=== PATIENT | female | born 1975 | race Caucasian/White ===

== ENCOUNTER 2020-01-29 05:13 | Emergency (ER) | payer OTHER ==
[~2020-01-29] VITALS: Ht 160 cm; Wt 83.0 kg
[~2020-01-29 05:13] MED LIST: XANAX 0.5 MG0.5 M1 PO
[2020-01-29] MEDS ORDERED: BACTRIM DS TAB1 EACH PO (05:25)
[2020-01-29 06:10] LABS: ABSOLUTE BASOPHILS 0.1 thou/uL (0.0-0.2); ABSOLUTE EOSINOPHILS 0.1 thou/uL (0.0-0.7); ABSOLUTE LYMPHOCYTES 1.7 thou/uL (0.8-5.3); ABSOLUTE MONOCYTES 0.8 thou/uL (0.0-1.2); ABSOLUTE NEUTROPHILS 8.9 thou/uL (1.6-8.1); BASOPHILS 0.5 %; EOSINOPHILS 0.5 %; MCH 30.2 pg (26.0-34.0); MCHC 34.9 g/dL (28.0-37.0); MCV 86.5 fL (80.0-100.0); MONOCYTES 7.1 %; MPV 8.4 fl. (7.2-11.1); NUCLEATED RBCS 0 /100WBC; PLATELET COUNT* 195 thou/uL (150-400); POLYS 76.9 %; RBC 5.31 mil/uL (4.20-5.00); RDW-CV 12.9 % (10.5-14.5); WBC 11.6 thou/uL (4.0-11.0)
[2020-01-29 06:15] LABS: CALCIUM 8.9 mg/dL (8.5-10.1); CREATININE 0.9 mg/dL (0.6-1.3); POTASSIUM 3.6 mmol/L (3.5-5.1)
[2020-01-29] MEDS ORDERED: KEFLEX500 M1 PO (07:06)
[2020-01-29 08:16] VITALS: BP 113/64
== END 2020-01-29 08:18 | disposition home or self-care (01) ==
LOC: M.ERS 05:13
PROVIDERS: Emergency Medicine
DX: S90.111A Contusion of right great toe without damage to nail, initial encounter (principal); L03.031 Cellulitis of right toe; Z90.710 Acquired absence of both cervix and uterus; Z88.5 Allergy status to narcotic agent; Z88.6 Allergy status to analgesic agent; X58.XXXA Exposure to other specified factors, initial encounter; Y93.89 Activity, other specified; Y92.89 Other specified places as the place of occurrence of the external cause; Y99.8 Other external cause status

== ENCOUNTER → 2020-02-07 | Outpatient (CLI) | payer OTHER ==
[~2020-02-07] MED LIST changes: +BACTRIM DS TAB1 EACH PO; +KEFLEX500 M1 PO
== END ==
LOC: M.WC 09:40
PROVIDERS: ATTEND Family Medicine
DX: L03.031 Cellulitis of right toe (principal); S91.101A Unspecified open wound of right great toe without damage to nail, initial encounter; E66.9 Obesity, unspecified; G47.30 Sleep apnea, unspecified; F41.9 Anxiety disorder, unspecified; Z68.35 Body mass index [BMI] 35.0-35.9, adult; Z87.891 Personal history of nicotine dependence; Z90.710 Acquired absence of both cervix and uterus; Z90.49 Acquired absence of other specified parts of digestive tract; X58.XXXA Exposure to other specified factors, initial encounter; Y93.89 Activity, other specified; Y92.89 Other specified places as the place of occurrence of the external cause; Y99.8 Other external cause status

== ENCOUNTER → 2020-02-13 | Outpatient (CLI) | payer OTHER | LOC: M.WC 04:20 | PROVIDERS: ATTEND Family Medicine | DX: S91.101D Unspecified open wound of right great toe without damage to nail, subsequent encounter (principal); L03.031 Cellulitis of right toe; E66.9 Obesity, unspecified; G47.30 Sleep apnea, unspecified; H91.90 Unspecified hearing loss, unspecified ear; F41.9 Anxiety disorder, unspecified; Z68.35 Body mass index [BMI] 35.0-35.9, adult; Z87.891 Personal history of nicotine dependence ==

== ENCOUNTER 2021-03-11 14:18 | Inpatient (IN) | payer OTHER ==
[~2021-03-11] VITALS: Ht 160 cm; Wt 73.8 kg
[2021-03-11 14:25] VITALS: BP 101/63
[2021-03-11] MEDS ORDERED: CLONAZEPAM 0.50.5 M1 PO (14:27)
[2021-03-11] MEDS ORDERED: ROSUVASTATIN CA10 MG PO (14:28)
--- NOTE | 2021-03-11 15:08 | EKG ---
[place] [address] ELECTROCARDIOGRAM REPORT Name: HUDSON ESQUIVEL Room: [facility]#: [id number] Admission: 03/11/21 Attend Phys: Discharge: Date of : 71 Date of Service: 03/11/21 1502 Report #: [id number] THIS REPORT FOR: //name// [facility] ED Test Date: 2021-03-11 Test Time: 15:02:56 Pat Name: HUDSON ESQUIVEL Department: Room: Gender: Unit Technician: : 1975 Requested By: Natali Andrade Order Number: [id number] MD: Olivier Carter Measurements Intervals [place] Rate: 98 P: 37 MD: 116 QRS: 61 QRSD: 79 T: 31 QT: 321 QTc: 410 Interpretive Statements Sinus rhythm Borderline short MD interval Baseline wander in lead(s) V6 Compared to ECG 02/13/2019 06:33:55 No significant changes Electronically Signed On 03-11-2021 15:08:03 CDT by Olivier Carter [email or web address] <ELECTRONICALLY SIGNED> By: Olivier Carter MD, [facility] 03/11/21 1508 1502 1502 Olivier Carter MD, [facility] /EPI
[2021-03-11 15:57] LABS: HEMATOCRIT 43.9 % (37.0-47.0); MCH 29.2 pg (26.0-34.0); MCHC 34.2 g/dL (28.0-37.0); MCV 85.6 fL (80.0-100.0); MPV 8.2 fl. (7.2-11.1); NUCLEATED RBCS 0 /100WBC; PLATELET COUNT* 95 thou/uL (150-400); RBC 5.13 mil/uL (4.20-5.00); WBC 4.8 thou/uL (4.0-11.0)
[2021-03-11 16:05] LABS: CALCIUM 7.9 mg/dL (8.5-10.1); POTASSIUM 3.6 mmol/L (3.5-5.1)
[2021-03-11 16:10] LABS: ALBUMIN 3.3 g/dL (3.4-5.0); TOTAL BILIRUBIN 0.3 mg/dL (<0.1-1.0)
[2021-03-11 16:30] LABS: ABSOLUTE LYMPHOCYTES 0.4 thou/uL (0.8-5.3); ABSOLUTE MONOCYTES 0.1 thou/uL (0.0-1.2); ABSOLUTE NEUTROPHILS 4.3 thou/uL (1.6-8.1); PLATELET ESTIMATE ADEQUATE
[2021-03-11 21:00] VITALS: BP 101/61
[2021-03-11 23:45] VITALS: BP 101/61; BP 115/73
[2021-03-12 04:23] VITALS: BP 97/67
[2021-03-12 08:00] VITALS: BP 120/74
[2021-03-12 12:00] VITALS: BP 115/71
[2021-03-12 16:00] VITALS: BP 106/68
[2021-03-12 20:14] VITALS: BP 103/65
[2021-03-12 20:19] VITALS: BP 107/66
[2021-03-13 00:13] VITALS: BP 92/59
[2021-03-13 04:41] VITALS: BP 105/68
[2021-03-13 09:00] VITALS: BP 98/50
[2021-03-13 12:11] VITALS: BP 96/63
[2021-03-13 13:29] LABS: CALCIUM 8.4 mg/dL (8.5-10.1); CREATININE 0.9 mg/dL (0.6-1.3)
[2021-03-13 15:12] LABS: URINE BILIRUBIN NEGATIVE (Negative); URINE BLOOD NEGATIVE (Negative); URINE CLARITY CLEAR; URINE COLOR YELLOW; URINE GLUCOSE-RANDOM NEGATIVE (Negative); URINE KETONES 1+ (Negative); URINE LEUKOCYTES-REFLEX TRACE (Negative); URINE NITRITE-REFLEX NEGATIVE (Negative); URINE PROTEIN 1+ (Negative); URINE UROBILINOGEN 0.2 E.U./dl (0.2-1.0)
[2021-03-13 15:30] LABS: CASTS None Seen /LPF (None Seen); CRYSTALS None Seen /LPF (None Seen); SQUAMOUS 0-3 Few /LPF (0-3); URINE RBC 0-2 Rare /HPF (0-2); URINE WBC-REFLEX 0-5 Rare /HPF (0-5)
[2021-03-13 16:35] VITALS: BP 97/63
[2021-03-13 20:19] VITALS: BP 107/66
[2021-03-14 00:29] VITALS: BP 96/47
[2021-03-14 04:43] VITALS: BP 108/71
[2021-03-14 08:00] VITALS: BP 117/72
[2021-03-14 10:58] LABS: CALCIUM 8.6 mg/dL (8.5-10.1)
[2021-03-14 12:00] VITALS: BP 95/63
[2021-03-14 16:00] VITALS: BP 94/57
[2021-03-14 22:00] VITALS: BP 103/69
[2021-03-15] VITALS: BP 111/75
[2021-03-15 04:00] VITALS: BP 111/79
[2021-03-15 08:00] VITALS: BP 127/79
[2021-03-15 11:31] VITALS: BP 96/64
[2021-03-15 16:11] VITALS: BP 92/51
[2021-03-16 00:38] VITALS: BP 108/75
[2021-03-16 05:05] VITALS: BP 124/80
[2021-03-16 07:30] VITALS: BP 117/80
[2021-03-16 08:33] LABS: ABSOLUTE LYMPHOCYTES 0.6 thou/uL (0.8-5.3); ABSOLUTE MONOCYTES 1.1 thou/uL (0.0-1.2); ABSOLUTE NEUTROPHILS 13.6 thou/uL (1.6-8.1); BASOPHILS 0.1 %; HEMATOCRIT 44.4 % (37.0-47.0); HEMOGLOBIN 15.3 gm/dL (12.0-15.0); LYMPHOCYTES 3.9 %; MCH 29.2 pg (26.0-34.0); MCHC 34.5 g/dL (28.0-37.0); MCV 84.7 fL (80.0-100.0); MPV 7.9 fl. (7.2-11.1); NUCLEATED RBCS 0 /100WBC; PLATELET COUNT* 234 thou/uL (150-400); RBC 5.24 mil/uL (4.20-5.00); RDW-CV 12.8 % (10.5-14.5); WBC 15.2 thou/uL (4.0-11.0)
[2021-03-16 08:46] LABS: ALBUMIN 2.9 g/dL (3.4-5.0); CREATININE 0.8 mg/dL (0.6-1.3); MAGNESIUM 2.2 mg/dL (1.8-2.4); POTASSIUM 3.9 mmol/L (3.5-5.1); TOTAL BILIRUBIN 0.6 mg/dL (<0.1-1.0); TOTAL PROTEIN 6.2 g/dL (6.4-8.2)
[2021-03-16 12:00] VITALS: BP 130/74
[2021-03-16 16:51] VITALS: BP 137/68
[2021-03-17 00:32] VITALS: BP 128/65
[2021-03-17 04:19] VITALS: BP 118/67
[2021-03-17 04:41] LABS: HEMATOCRIT 44.6 % (37.0-47.0); MCH 28.8 pg (26.0-34.0); MCHC 33.6 g/dL (28.0-37.0); MCV 85.6 fL (80.0-100.0); MPV 7.6 fl. (7.2-11.1); NUCLEATED RBCS 0 /100WBC; PLATELET COUNT* 161 thou/uL (150-400); RDW-CV 12.7 % (10.5-14.5); WBC 19.1 thou/uL (4.0-11.0)
[2021-03-17 05:00] LABS: ALBUMIN 2.7 g/dL (3.4-5.0); CALCIUM 8.3 mg/dL (8.5-10.1); CREATININE 0.9 mg/dL (0.6-1.3); MAGNESIUM 2.4 mg/dL (1.8-2.4); POTASSIUM 3.9 mmol/L (3.5-5.1); TOTAL BILIRUBIN 0.7 mg/dL (<0.1-1.0); TOTAL PROTEIN 6.4 g/dL (6.4-8.2)
[2021-03-17 06:20] LABS: ABSOLUTE LYMPHOCYTES 1.1 thou/uL (0.8-5.3); ABSOLUTE MONOCYTES 0.2 thou/uL (0.0-1.2); ABSOLUTE NEUTROPHILS 17.8 thou/uL (1.6-8.1); ATYPICAL LYMPHS 3 %; PLATELET ESTIMATE ADEQUATE
[2021-03-17 08:00] VITALS: BP 113/77
[2021-03-17 12:00] VITALS: BP 113/70
[2021-03-17 12:45] LABS: BE 0.7 mmol/L (-2 to +3); PCO2 34.5 mmHg (35.0-45.0); PO2 117.7 mmHg (75.0-100.0); pH 7.458 (7.340-7.450)
[2021-03-17 17:43] VITALS: BP 119/71
[2021-03-18] VITALS: BP 104/73
[2021-03-18 04:00] VITALS: BP 134/55
[2021-03-18 04:55] LABS: HEMATOCRIT 44.4 % (37.0-47.0); HEMOGLOBIN 14.9 gm/dL (12.0-15.0); MCH 28.8 pg (26.0-34.0); MCHC 33.5 g/dL (28.0-37.0); MCV 86.2 fL (80.0-100.0); MPV 7.7 fl. (7.2-11.1); RBC 5.16 mil/uL (4.20-5.00); RDW-CV 12.6 % (10.5-14.5); WBC 19.5 thou/uL (4.0-11.0)
[2021-03-18 05:18] LABS: ALBUMIN 3.3 g/dL (3.4-5.0); CALCIUM 8.7 mg/dL (8.5-10.1); CREATININE 0.9 mg/dL (0.6-1.3); MAGNESIUM 2.4 mg/dL (1.8-2.4); POTASSIUM 4.1 mmol/L (3.5-5.1); TOTAL BILIRUBIN 0.8 mg/dL (<0.1-1.0); TOTAL PROTEIN 6.8 g/dL (6.4-8.2)
[2021-03-18 08:00] VITALS: BP 141/66
[2021-03-18 12:01] VITALS: BP 130/57
[2021-03-18 15:58] VITALS: BP 100/61
[2021-03-18 20:00] VITALS: BP 146/76
[2021-03-19 00:54] VITALS: BP 110/71
[2021-03-19 04:43] VITALS: BP 113/71
[2021-03-19 05:19] LABS: ABSOLUTE LYMPHOCYTES 0.3 thou/uL (0.8-5.3); ABSOLUTE MONOCYTES 0.4 thou/uL (0.0-1.2); ABSOLUTE NEUTROPHILS 17.1 thou/uL (1.6-8.1); BASOPHILS 0.1 %; HEMATOCRIT 47.6 % (37.0-47.0); HEMOGLOBIN 15.9 gm/dL (12.0-15.0); LYMPHOCYTES 1.9 %; MCH 28.5 pg (26.0-34.0); MCHC 33.4 g/dL (28.0-37.0); MCV 85.4 fL (80.0-100.0); MONOCYTES 2.5 %; NUCLEATED RBCS 0 /100WBC; PLATELET COUNT* 131 thou/uL (150-400); POLYS 95.5 %; RBC 5.58 mil/uL (4.20-5.00); RDW-CV 12.6 % (10.5-14.5); WBC 17.9 thou/uL (4.0-11.0)
[2021-03-19 05:49] LABS: ALBUMIN 3.2 g/dL (3.4-5.0); CALCIUM 8.8 mg/dL (8.5-10.1); CREATININE 0.9 mg/dL (0.6-1.3); MAGNESIUM 2.5 mg/dL (1.8-2.4); POTASSIUM 4.5 mmol/L (3.5-5.1); TOTAL BILIRUBIN 0.7 mg/dL (<0.1-1.0); TOTAL PROTEIN 7.2 g/dL (6.4-8.2)
[2021-03-19 08:00] VITALS: BP 95/65
[2021-03-19 12:30] VITALS: BP 136/72
[2021-03-19 17:53] VITALS: BP 128/77
[2021-03-19 20:00] VITALS: BP 151/73
[2021-03-20 00:27] VITALS: BP 107/68
[2021-03-20 04:28] VITALS: BP 91/53
[2021-03-20 08:00] VITALS: BP 108/63
[2021-03-20 12:00] VITALS: BP 116/81
[2021-03-20 16:00] VITALS: BP 119/80
[2021-03-20 20:00] VITALS: BP 145/583
[2021-03-21 00:29] VITALS: BP 98/61
[2021-03-21 04:00] VITALS: BP 96/56
[2021-03-21 06:00] LABS: HEMATOCRIT 48.2 % (37.0-47.0); HEMOGLOBIN 16.2 gm/dL (12.0-15.0); MCH 28.9 pg (26.0-34.0); MCHC 33.7 g/dL (28.0-37.0); MCV 85.7 fL (80.0-100.0); MPV 8.2 fl. (7.2-11.1); NUCLEATED RBCS 0 /100WBC; PLATELET COUNT* 110 thou/uL (150-400); RBC 5.62 mil/uL (4.20-5.00); RDW-CV 13.1 % (10.5-14.5)
[2021-03-21 06:19] LABS: CALCIUM 8.8 mg/dL (8.5-10.1); CREATININE 0.9 mg/dL (0.6-1.3); MAGNESIUM 2.4 mg/dL (1.8-2.4); POTASSIUM 4.7 mmol/L (3.5-5.1); TOTAL BILIRUBIN 0.9 mg/dL (<0.1-1.0); TOTAL PROTEIN 6.7 g/dL (6.4-8.2)
[2021-03-21 07:25] LABS: ABSOLUTE LYMPHOCYTES 0.7 thou/uL (0.8-5.3); ABSOLUTE NEUTROPHILS 21.3 thou/uL (1.6-8.1); PLATELET ESTIMATE ADEQUATE
[2021-03-21 08:00] VITALS: BP 90/57
[2021-03-21 12:19] VITALS: BP 140/76
[2021-03-21 16:00] VITALS: BP 139/73
[2021-03-21 17:26] LABS: CALCIUM 9.2 mg/dL (8.5-10.1); MAGNESIUM 2.5 mg/dL (1.8-2.4); POTASSIUM 4.5 mmol/L (3.5-5.1)
[2021-03-21 18:34] LABS: BE 1.8 mmol/L (-2 to +3); PCO2 33.6 mmHg (35.0-45.0); PO2 62.2 mmHg (75.0-100.0)
[2021-03-21 20:00] VITALS: BP 134/73
[2021-03-22] VITALS: BP 144/78
[2021-03-22 04:00] VITALS: BP 125/75
[2021-03-22 08:00] VITALS: BP 123/78
[2021-03-22 12:00] VITALS: BP 135/85
[2021-03-22 18:35] VITALS: BP 111/81
[2021-03-22 20:00] VITALS: BP 129/85
[2021-03-23 00:51] VITALS: BP 107/74
[2021-03-23 04:32] VITALS: BP 111/81
[2021-03-23 04:50] LABS: ABSOLUTE BASOPHILS 0.1 thou/uL (0.0-0.2); ABSOLUTE LYMPHOCYTES 0.6 thou/uL (0.8-5.3); ABSOLUTE MONOCYTES 0.8 thou/uL (0.0-1.2); BASOPHILS 0.3 %; EOSINOPHILS 0.1 %; HEMATOCRIT 50.1 % (37.0-47.0); HEMOGLOBIN 17.1 gm/dL (12.0-15.0); LYMPHOCYTES 2.4 %; MCH 29.2 pg (26.0-34.0); MCHC 34.1 g/dL (28.0-37.0); MCV 85.6 fL (80.0-100.0); MPV 8.8 fl. (7.2-11.1); NUCLEATED RBCS 0 /100WBC; PLATELET COUNT* 107 thou/uL (150-400); POLYS 94.2 %; RBC 5.86 mil/uL (4.20-5.00); RDW-CV 12.7 % (10.5-14.5); WBC 25.4 thou/uL (4.0-11.0)
[2021-03-23 05:01] LABS: ALBUMIN 3.6 g/dL (3.4-5.0); CALCIUM 9.2 mg/dL (8.5-10.1); MAGNESIUM 2.4 mg/dL (1.8-2.4); POTASSIUM 4.6 mmol/L (3.5-5.1); TOTAL BILIRUBIN 1.1 mg/dL (<0.1-1.0); TOTAL PROTEIN 6.9 g/dL (6.4-8.2)
[2021-03-23 08:00] VITALS: BP 106/83
[2021-03-23 12:00] VITALS: BP 137/85
[2021-03-23 16:00] VITALS: BP 139/74
[2021-03-24] VITALS: BP 121/89
[2021-03-24 03:33] VITALS: BP 112/79
[2021-03-24 06:14] LABS: HEMOGLOBIN 17.2 gm/dL (12.0-15.0); MCH 28.8 pg (26.0-34.0); MCHC 33.8 g/dL (28.0-37.0); MCV 85.2 fL (80.0-100.0); MPV 9.2 fl. (7.2-11.1); NUCLEATED RBCS 0 /100WBC; PLATELET COUNT* 97 thou/uL (150-400); RBC 5.99 mil/uL (4.20-5.00); RDW-CV 12.7 % (10.5-14.5)
[2021-03-24 06:24] LABS: ALBUMIN 3.3 g/dL (3.4-5.0); CALCIUM 8.9 mg/dL (8.5-10.1); MAGNESIUM 2.4 mg/dL (1.8-2.4); POTASSIUM 4.3 mmol/L (3.5-5.1); TOTAL BILIRUBIN 1.2 mg/dL (<0.1-1.0); TOTAL PROTEIN 6.7 g/dL (6.4-8.2)
[2021-03-24 07:44] LABS: ABSOLUTE LYMPHOCYTES 0.5 thou/uL (0.8-5.3); ABSOLUTE NEUTROPHILS 22.5 thou/uL (1.6-8.1); PLATELET ESTIMATE DECREASED
[2021-03-24 08:30] VITALS: BP 115/80
[2021-03-24 12:28] VITALS: BP 128/88
[2021-03-24 17:01] VITALS: BP 113/81
[2021-03-24 20:30] VITALS: BP 120/83
[2021-03-25] VITALS: BP 119/70
[2021-03-25 04:00] VITALS: BP 95/62
[2021-03-25 08:00] VITALS: BP 97/67
[2021-03-25 12:13] VITALS: BP 121/82
[2021-03-25 16:00] VITALS: BP 119/82
[2021-03-25 20:30] VITALS: BP 107/77
[2021-03-26 00:07] VITALS: BP 116/85
[2021-03-26 04:00] VITALS: BP 97/64
[2021-03-26 09:06] VITALS: BP 98/67
[2021-03-26 09:30] LABS: ABSOLUTE MONOCYTES 1.3 thou/uL (0.0-1.2); ABSOLUTE NEUTROPHILS 24.1 thou/uL (1.6-8.1); BASOPHILS 0.1 %; EOSINOPHILS 0.1 %; HEMATOCRIT 47.7 % (37.0-47.0); HEMOGLOBIN 16.3 gm/dL (12.0-15.0); LYMPHOCYTES 3.9 %; MCH 29.2 pg (26.0-34.0); MCHC 34.2 g/dL (28.0-37.0); MCV 85.2 fL (80.0-100.0); MPV 9.6 fl. (7.2-11.1); NUCLEATED RBCS 0 /100WBC; PLATELET COUNT* 133 thou/uL (150-400); POLYS 90.9 %; RBC 5.59 mil/uL (4.20-5.00); RDW-CV 12.9 % (10.5-14.5); WBC 26.5 thou/uL (4.0-11.0)
[2021-03-26 09:40] LABS: ALBUMIN 3.1 g/dL (3.4-5.0); CALCIUM 8.7 mg/dL (8.5-10.1); MAGNESIUM 2.5 mg/dL (1.8-2.4); POTASSIUM 4.6 mmol/L (3.5-5.1); TOTAL BILIRUBIN 1.3 mg/dL (<0.1-1.0); TOTAL PROTEIN 6.1 g/dL (6.4-8.2)
[2021-03-26 12:20] VITALS: BP 103/73
[2021-03-26 16:51] VITALS: BP 124/79
[2021-03-26 20:00] VITALS: BP 105/72
[2021-03-27 00:33] VITALS: BP 94/55
[2021-03-27 04:30] VITALS: BP 90/64
[2021-03-27 05:05] LABS: CALCIUM 8.4 mg/dL (8.5-10.1); CREATININE 0.8 mg/dL (0.6-1.3); POTASSIUM 4.7 mmol/L (3.5-5.1)
[2021-03-27 08:00] VITALS: BP 99/65
[2021-03-27 19:44] VITALS: BP 111/78
[2021-03-27 20:00] VITALS: BP 158/90
[2021-03-27 23:35] VITALS: BP 115/75
[2021-03-28 04:00] VITALS: BP 106/72
[2021-03-28 06:12] LABS: CALCIUM 8.8 mg/dL (8.5-10.1); CREATININE 0.7 mg/dL (0.6-1.3)
[2021-03-28 08:00] VITALS: BP 102/69
[2021-03-28 14:09] VITALS: BP 95/58
[2021-03-28 19:37] VITALS: BP 106/74
[2021-03-28 21:00] VITALS: BP 126/73
[2021-03-28 23:45] VITALS: BP 100/64
[2021-03-29 04:00] VITALS: BP 91/59
[2021-03-29 04:24] LABS: HEMATOCRIT 41.3 % (37.0-47.0); MCH 28.5 pg (26.0-34.0); MCHC 33.3 g/dL (28.0-37.0); MCV 85.7 fL (80.0-100.0); MPV 8.9 fl. (7.2-11.1); RBC 4.82 mil/uL (4.20-5.00); WBC 19.8 thou/uL (4.0-11.0)
[2021-03-29 04:53] LABS: CALCIUM 8.3 mg/dL (8.5-10.1); CREATININE 0.8 mg/dL (0.6-1.3); POTASSIUM 4.1 mmol/L (3.5-5.1)
[2021-03-29 05:01] LABS: HEMOGLOBIN 13.7 gm/dL (12.0-15.0)
[2021-03-29 08:00] VITALS: BP 93/69
[2021-03-29 12:00] VITALS: BP 109/74
[2021-03-29 16:00] VITALS: BP 109/72
[2021-03-29 20:00] VITALS: BP 105/61
[2021-03-30 00:04] VITALS: BP 117/68
[2021-03-30 04:48] VITALS: BP 102/65
[2021-03-30 08:00] VITALS: BP 105/68
[2021-03-30 19:13] VITALS: BP 103/61
[2021-03-30 20:00] VITALS: BP 108/64
[2021-03-30 23:58] VITALS: BP 117/74
[2021-03-31 04:36] VITALS: BP 102/64
[2021-03-31 06:54] LABS: HEMOGLOBIN 13.5 gm/dL (12.0-15.0); MCH 29.1 pg (26.0-34.0); MCHC 33.8 g/dL (28.0-37.0); MCV 86.2 fL (80.0-100.0); MPV 8.3 fl. (7.2-11.1); NUCLEATED RBCS 0 /100WBC; PLATELET COUNT* 129 thou/uL (150-400); RBC 4.64 mil/uL (4.20-5.00); RDW-CV 12.9 % (10.5-14.5); WBC 23.6 thou/uL (4.0-11.0)
[2021-03-31 07:06] LABS: ALBUMIN 2.8 g/dL (3.4-5.0); CALCIUM 8.4 mg/dL (8.5-10.1); CREATININE 0.7 mg/dL (0.6-1.3); MAGNESIUM 2.5 mg/dL (1.8-2.4); PHOSPHORUS* 4.8 mg/dL (2.5-4.9); POTASSIUM 4.3 mmol/L (3.5-5.1); TOTAL BILIRUBIN 0.6 mg/dL (<0.1-1.0); TOTAL PROTEIN 5.3 g/dL (6.4-8.2)
[2021-03-31 07:46] LABS: ABSOLUTE EOSINOPHILS 0.2 thou/uL (0.0-0.7); ABSOLUTE LYMPHOCYTES 0.5 thou/uL (0.8-5.3); ABSOLUTE MONOCYTES 0.5 thou/uL (0.0-1.2); ABSOLUTE NEUTROPHILS 22.4 thou/uL (1.6-8.1); PLATELET ESTIMATE ADEQUATE
[2021-03-31 07:55] VITALS: BP 99/69
[2021-03-31 12:26] VITALS: BP 109/61
[2021-03-31 19:12] VITALS: BP 101/67
[2021-03-31 20:00] VITALS: BP 129/83
[2021-04-01 00:03] VITALS: BP 110/68
[2021-04-01 04:02] VITALS: BP 103/68
[2021-04-01 05:48] LABS: ABSOLUTE MONOCYTES 0.3 thou/uL (0.0-1.2); MONOCYTES 1.8 %; RBC 4.73 mil/uL (4.20-5.00)
[2021-04-01 05:49] LABS: ABSOLUTE LYMPHOCYTES 0.7 thou/uL (0.8-5.3); ABSOLUTE NEUTROPHILS 18.1 thou/uL (1.6-8.1); BASOPHILS 0.1 %; HEMATOCRIT 40.7 % (37.0-47.0); HEMOGLOBIN 13.9 gm/dL (12.0-15.0); LYMPHOCYTES 3.9 %; MCH 29.3 pg (26.0-34.0); MCHC 34.1 g/dL (28.0-37.0); MPV 8.3 fl. (7.2-11.1); NUCLEATED RBCS 0 /100WBC; PLATELET COUNT* 119 thou/uL (150-400); POLYS 94.2 %; RDW-CV 12.9 % (10.5-14.5); WBC 19.2 thou/uL (4.0-11.0)
[2021-04-01 06:04] LABS: ALBUMIN 3.7 g/dL (3.4-5.0); CREATININE 0.8 mg/dL (0.6-1.3); MAGNESIUM 2.6 mg/dL (1.8-2.4); POTASSIUM 4.4 mmol/L (3.5-5.1); TOTAL BILIRUBIN 0.8 mg/dL (<0.1-1.0); TOTAL PROTEIN 6.2 g/dL (6.4-8.2)
[2021-04-01 08:08] VITALS: BP 111/79
[2021-04-01 12:00] VITALS: BP 127/73
[2021-04-01 19:29] VITALS: BP 127/77
[2021-04-01 20:00] VITALS: BP 150/94
[2021-04-02 00:34] VITALS: BP 105/68
[2021-04-02 04:27] LABS: ABSOLUTE LYMPHOCYTES 0.7 thou/uL (0.8-5.3); ABSOLUTE MONOCYTES 0.4 thou/uL (0.0-1.2); ABSOLUTE NEUTROPHILS 16.6 thou/uL (1.6-8.1); BASOPHILS 0.1 %; EOSINOPHILS 0.2 %; HEMATOCRIT 40.4 % (37.0-47.0); HEMOGLOBIN 13.6 gm/dL (12.0-15.0); LYMPHOCYTES 4.1 %; MCH 29.1 pg (26.0-34.0); MCHC 33.6 g/dL (28.0-37.0); MCV 86.6 fL (80.0-100.0); MONOCYTES 2.2 %; MPV 8.1 fl. (7.2-11.1); NUCLEATED RBCS 0 /100WBC; PLATELET COUNT* 108 thou/uL (150-400); POLYS 93.4 %; RBC 4.67 mil/uL (4.20-5.00); RDW-CV 13.2 % (10.5-14.5); WBC 17.7 thou/uL (4.0-11.0)
[2021-04-02 04:39] VITALS: BP 91/58
[2021-04-02 04:58] LABS: CALCIUM 8.6 mg/dL (8.5-10.1); CREATININE 0.8 mg/dL (0.6-1.3); MAGNESIUM 2.4 mg/dL (1.8-2.4); POTASSIUM 4.4 mmol/L (3.5-5.1)
[2021-04-02 08:00] VITALS: BP 99/63
[2021-04-02 12:00] VITALS: BP 108/76
[2021-04-02 22:00] VITALS: BP 128/84
[2021-04-03 00:13] VITALS: BP 109/75
[2021-04-03 04:09] LABS: HEMATOCRIT 41.1 % (37.0-47.0); HEMOGLOBIN 13.9 gm/dL (12.0-15.0); MCH 29.5 pg (26.0-34.0); MCHC 33.8 g/dL (28.0-37.0); MCV 87.1 fL (80.0-100.0); MPV 8.3 fl. (7.2-11.1); NUCLEATED RBCS 0 /100WBC; PLATELET COUNT* 98 thou/uL (150-400); RBC 4.72 mil/uL (4.20-5.00); RDW-CV 13.4 % (10.5-14.5); WBC 17.9 thou/uL (4.0-11.0)
[2021-04-03 04:21] LABS: ALBUMIN 3.2 g/dL (3.4-5.0); CALCIUM 8.7 mg/dL (8.5-10.1); CREATININE 0.7 mg/dL (0.6-1.3); MAGNESIUM 2.4 mg/dL (1.8-2.4); POTASSIUM 3.9 mmol/L (3.5-5.1); TOTAL BILIRUBIN 0.7 mg/dL (<0.1-1.0); TOTAL PROTEIN 5.9 g/dL (6.4-8.2)
[2021-04-03 04:29] VITALS: BP 124/84
[2021-04-03 07:01] LABS: ABSOLUTE LYMPHOCYTES 0.9 thou/uL (0.8-5.3); ABSOLUTE MONOCYTES 0.5 thou/uL (0.0-1.2); ABSOLUTE NEUTROPHILS 16.5 thou/uL (1.6-8.1)
[2021-04-03 07:02] LABS: PLATELET ESTIMATE DECREASED
[2021-04-03 12:00] VITALS: BP 115/73
[2021-04-03 16:00] VITALS: BP 101/58
[2021-04-03 22:00] VITALS: BP 112/73
[2021-04-04] VITALS: BP 94/62
[2021-04-04 04:34] VITALS: BP 86/57
[2021-04-04 08:07] VITALS: BP 112/69
[2021-04-04 12:00] VITALS: BP 109/72
[2021-04-04 16:00] VITALS: BP 106/70
[2021-04-04 20:00] VITALS: BP 155/89
[2021-04-05] VITALS: BP 113/72
[2021-04-05 04:00] VITALS: BP 108/78
[2021-04-05 08:00] VITALS: BP 106/65
[2021-04-05 12:00] VITALS: BP 117/79
--- NOTE | 2021-04-05 13:55 | 2DMMODE ---
[place] [address] 2 D/M-MODE ECHOCARDIOGRAM Name: HUDSON ESQUIVEL Room: [address] IN .R.#: [id number] Admission: 03/11/21 Attend Phys: Niraj Aguirre Discharge: Date of : 71 Date of Service: 04/05/21 1355 Report #: [id number] THIS REPORT FOR: cc: Violette Cabrales Ghaison F. DO Blick, David R. MD [facility] ~ APPROVED REPORT Study performed: 04/05/2021 11:28:47 EXAM: Comprehensive 2D, Doppler, and color-flow Echocardiogram Patient Location: In-Patient Room #: [facility] Status: routine BSA: 1.85 HR: 72 bpm BP: 108/78 mmHg Rhythm: NSR Other Information Study Quality: Good Indications hypoxia 2D Dimensions IVSd: 10.08 (7-11mm) LVOT Diam: 19.67 (18-24mm) LVDd: 40.29 mm PWd: 8.47 (7-11mm) Ascending Ao: 28.02 (22-36mm) LVDs: 22.24 (25-40mm) Aortic Root: 29.78 mm Volumes Left Atrial Volume (Systole) LA ESV Index: 20.40 mL/m2 Aortic Valve AoV Peak Freddy.: 1.22 m/s AO Peak Gr.: 5.98 mmHg LVOT Max P.14 mmHg AO Mean Gr.: 3.02 mmHg LVOT Mean P.58 mmHg LVOT Max V: 0.89 m/s AO V2 VTI: 25.07 cm LVOT Mean V: 0.58 m/s MARCELINO (VTI): 2.07 cm2 LVOT V1 VTI: 17.08 [place] [address] 2 D/M-MODE ECHOCARDIOGRAM Name: HUDSON ESQUIVEL Room: [address] IN ..#: [id number] Admission: 03/11/21 Attend Phys: Niraj Aguirre Discharge: Date of : 71 Date of Service: 04/05/21 1355 Report #: [id number] Mitral Valve E/A Ratio: 1.07 MV Decel. Time: 167.83 ms MV E Max Freddy.: 0.76 m/s MV PHT: 48.67 ms MVA (PHT): 4.52 cm2 TDI E/Lateral E': 8.44 E/Medial E': 6.91 Medial E' Freddy.: 0.11 m/s Lateral E' Freddy.: 0.09 m/s Pulmonary Valve PV Peak Freddy.: 0.87 m/s PV Peak Gr.: 3.01 mmHg Tricuspid Valve RAP Estimate: 5.00 mmHg TR Peak Gr.: 20.45 mmHg RVSP: 25.00 mmHg PA Pressure: 25.00 mmHg Left Ventricle The left ventricle is normal size. There is normal LV segmental wall motion. There is normal left ventricular wall thickness. Left ventricular systolic function is normal. The left ventricular ejection fraction is within the normal range. LVEF is 55-60%. The left ventricular diastolic function is normal. Right Ventricle The right ventricle is normal size. The right ventricular systolic function is normal. Atria The left atrium size is normal. The right atrium size is normal. Aortic Valve The aortic valve is normal in structure. No aortic regurgitation is present. There is no aortic valvular stenosis. Mitral Valve The mitral valve is normal in structure. There is no mitral valve regurgitation noted. No evidence of mitral valve stenosis. Tricuspid Valve The tricuspid valve is normal in structure. Trace tricuspid regurgitation. [place] [address] 2 D/M-MODE ECHOCARDIOGRAM Name: HUDSON ESQUIVEL Room: [address] [place] [facility].#: [id number] Admission: 03/11/21 Attend Phys: Niraj Aguirre Discharge: Date of : 71 Date of Service: 04/05/21 1355 Report #: [id number] Pulmonic Valve The pulmonary valve is normal in structure. There is no pulmonic valvular regurgitation. Great Vessels The aortic root is normal in size. IVC is normal in size and collapses >50% with inspiration. Pericardium There is no pericardial effusion. <Conclusion> Left ventricular systolic function is normal. The left ventricular ejection fraction is within the normal range. <ELECTRONICALLY SIGNED> By: Olivier Carter MD, FACC 04/05/21 1355 1355 1355 Olivier Carter MD, FACC /INF
[2021-04-05 16:00] VITALS: BP 133/76
[2021-04-05 20:00] VITALS: BP 117/82
[2021-04-06] VITALS: BP 129/72
[2021-04-06 04:00] VITALS: BP 101/72
[2021-04-06 05:21] LABS: ABSOLUTE LYMPHOCYTES 0.5 thou/uL (0.8-5.3); ABSOLUTE MONOCYTES 0.3 thou/uL (0.0-1.2); ABSOLUTE NEUTROPHILS 14.5 thou/uL (1.6-8.1); BASOPHILS 0.2 %; EOSINOPHILS 0.1 %; HEMATOCRIT 41.1 % (37.0-47.0); HEMOGLOBIN 13.8 gm/dL (12.0-15.0); LYMPHOCYTES 3.3 %; MCH 29.1 pg (26.0-34.0); MCHC 33.4 g/dL (28.0-37.0); MONOCYTES 1.9 %; MPV 9.5 fl. (7.2-11.1); NUCLEATED RBCS 0 /100WBC; PLATELET COUNT* 55 thou/uL (150-400); POLYS 94.5 %; RBC 4.73 mil/uL (4.20-5.00); RDW-CV 13.4 % (10.5-14.5); WBC 15.4 thou/uL (4.0-11.0)
[2021-04-06 05:43] LABS: ALBUMIN 3.1 g/dL (3.4-5.0); CALCIUM 8.4 mg/dL (8.5-10.1); CREATININE 0.8 mg/dL (0.6-1.3); MAGNESIUM 2.5 mg/dL (1.8-2.4); POTASSIUM 4.3 mmol/L (3.5-5.1); TOTAL BILIRUBIN 0.8 mg/dL (<0.1-1.0); TOTAL PROTEIN 5.5 g/dL (6.4-8.2)
[2021-04-06 08:00] VITALS: BP 124/78
[2021-04-06 12:00] VITALS: BP 103/70
[2021-04-06 16:00] VITALS: BP 115/73
[2021-04-06 20:25] VITALS: BP 134/77
[2021-04-07 01:17] VITALS: BP 115/67
[2021-04-07 04:58] VITALS: BP 115/72
[2021-04-07 04:58] LABS: APTT 21.2 Seconds (25.0-31.3); PROTIME 10.8 Seconds (9.20-11.50)
[2021-04-07 05:03] LABS: HEMOGLOBIN 13.1 gm/dL (12.0-15.0); MPV 9.4 fl. (7.2-11.1); NUCLEATED RBCS 0 /100WBC
[2021-04-07 05:08] LABS: HEMATOCRIT 38.8 % (37.0-47.0); MCH 29.5 pg (26.0-34.0); MCHC 33.8 g/dL (28.0-37.0); MCV 87.2 fL (80.0-100.0); RBC 4.45 mil/uL (4.20-5.00); RDW-CV 13.8 % (10.5-14.5); WBC 13.9 thou/uL (4.0-11.0)
[2021-04-07 05:19] LABS: PLATELET COUNT* 47 thou/uL (150-400)
[2021-04-07 05:46] LABS: ALBUMIN 2.9 g/dL (3.4-5.0); CALCIUM 8.3 mg/dL (8.5-10.1); CREATININE 0.7 mg/dL (0.6-1.3); MAGNESIUM 2.2 mg/dL (1.8-2.4); POTASSIUM 4.1 mmol/L (3.5-5.1); TOTAL BILIRUBIN 0.9 mg/dL (<0.1-1.0); TOTAL PROTEIN 5.4 g/dL (6.4-8.2)
[2021-04-07 06:10] LABS: ABSOLUTE LYMPHOCYTES 0.7 thou/uL (0.8-5.3); ABSOLUTE MONOCYTES 0.1 thou/uL (0.0-1.2); ABSOLUTE NEUTROPHILS 13.1 thou/uL (1.6-8.1); ANISOCYTOSIS 1+; PLATELET ESTIMATE DECREASED; POIKILOCYTOSIS 1+
[2021-04-07 08:00] VITALS: BP 139/85
[2021-04-07 12:00] VITALS: BP 103/73
[2021-04-07 16:00] VITALS: BP 108/72
[2021-04-07 16:28] LABS: BE 2.5 mmol/L (-2 to +3); PCO2 VENOUS 48.6 mmHg (41.0-51.0); PO2 VENOUS 48.4 mmHg (35.0-45.0)
[2021-04-07 20:11] VITALS: BP 111/79
[2021-04-08 00:12] VITALS: BP 93/62
[2021-04-08 01:21] LABS: URINE BILIRUBIN NEGATIVE (Negative); URINE BLOOD NEGATIVE (Negative); URINE CLARITY CLEAR; URINE COLOR YELLOW; URINE GLUCOSE-RANDOM NEGATIVE (Negative); URINE KETONES NEGATIVE (Negative); URINE LEUKOCYTES-REFLEX NEGATIVE (Negative); URINE NITRITE-REFLEX NEGATIVE (Negative); URINE PROTEIN NEGATIVE (Negative); URINE SPECIFIC GRAVITY 1.015 (1.005-1.030); URINE UROBILINOGEN 0.2 E.U./dl (0.2-1.0)
[2021-04-08 02:06] LABS: HEMOGLOBIN 13.3 g/dL (11.1-15.9)
[2021-04-08 03:56] LABS: ABSOLUTE LYMPHOCYTES 0.5 thou/uL (0.8-5.3); ABSOLUTE MONOCYTES 0.2 thou/uL (0.0-1.2); ABSOLUTE NEUTROPHILS 10.6 thou/uL (1.6-8.1); BASOPHILS 0.1 %; EOSINOPHILS 0.3 %; HEMATOCRIT 42.5 % (37.0-47.0); HEMOGLOBIN 14.3 gm/dL (12.0-15.0); LYMPHOCYTES 4.1 %; MCH 29.5 pg (26.0-34.0); MCHC 33.6 g/dL (28.0-37.0); MCV 87.8 fL (80.0-100.0); MONOCYTES 1.3 %; MPV 9.6 fl. (7.2-11.1); NUCLEATED RBCS 0 /100WBC; PLATELET COUNT* 53 thou/uL (150-400); POLYS 94.2 %; RBC 4.84 mil/uL (4.20-5.00); RDW-CV 13.6 % (10.5-14.5); WBC 11.3 thou/uL (4.0-11.0)
[2021-04-08 04:00] VITALS: BP 101/67
[2021-04-08 04:06] LABS: ALBUMIN 3.1 g/dL (3.4-5.0); CALCIUM 8.6 mg/dL (8.5-10.1); CREATININE 0.7 mg/dL (0.6-1.3); MAGNESIUM 2.4 mg/dL (1.8-2.4); POTASSIUM 4.3 mmol/L (3.5-5.1)
[2021-04-08 08:00] VITALS: BP 109/78
[2021-04-08 12:03] VITALS: BP 127/87
[2021-04-08 16:39] VITALS: BP 115/78
[2021-04-09 00:04] VITALS: BP 102/73
[2021-04-09 03:59] LABS: ABSOLUTE BASOPHILS 0.1 thou/uL (0.0-0.2); ABSOLUTE LYMPHOCYTES 0.5 thou/uL (0.8-5.3); ABSOLUTE MONOCYTES 0.2 thou/uL (0.0-1.2); ABSOLUTE NEUTROPHILS 9.4 thou/uL (1.6-8.1); BASOPHILS 0.5 %; EOSINOPHILS 0.1 %; HEMATOCRIT 39.5 % (37.0-47.0); LYMPHOCYTES 4.6 %; MCH 30.5 pg (26.0-34.0); MCHC 35.4 g/dL (28.0-37.0); MONOCYTES 2.1 %; MPV 9.4 fl. (7.2-11.1); NUCLEATED RBCS 0 /100WBC; PLATELET COUNT* 64 thou/uL (150-400); POLYS 92.7 %; RDW-CV 14.1 % (10.5-14.5); WBC 10.1 thou/uL (4.0-11.0)
[2021-04-09 04:13] LABS: CALCIUM 9.1 mg/dL (8.5-10.1); CREATININE 0.7 mg/dL (0.6-1.3); MAGNESIUM 2.3 mg/dL (1.8-2.4); POTASSIUM 3.6 mmol/L (3.5-5.1)
[2021-04-09 04:19] VITALS: BP 118/78
[2021-04-09 08:00] VITALS: BP 119/77
[2021-04-09 12:24] VITALS: BP 117/76
[2021-04-09 17:43] VITALS: BP 130/100
[2021-04-09 20:45] VITALS: BP 131/101
[2021-04-09 23:57] LABS: BE 6.5 mmol/L (-2 to +3); PCO2 41.7 mmHg (35.0-45.0); pH 7.485 (7.340-7.450)
[2021-04-10] VITALS (94 sets, daily range): BP systolic 95–180; BP diastolic 57–146
[2021-04-10 00:02] LABS: PO2 44.2 mmHg (75.0-100.0)
[2021-04-10 00:31] LABS: ABSOLUTE LYMPHOCYTES 0.5 thou/uL (0.8-5.3); ABSOLUTE MONOCYTES 0.3 thou/uL (0.0-1.2); ABSOLUTE NEUTROPHILS 18.4 thou/uL (1.6-8.1); BASOPHILS 0.1 %; EOSINOPHILS 0.2 %; LYMPHOCYTES 2.7 %; MCH 29.9 pg (26.0-34.0); MCHC 34.1 g/dL (28.0-37.0); MCV 87.7 fL (80.0-100.0); MONOCYTES 1.6 %; MPV 9.2 fl. (7.2-11.1); NUCLEATED RBCS 0 /100WBC; PLATELET COUNT* 112 thou/uL (150-400); POLYS 95.4 %; RBC 5.47 mil/uL (4.20-5.00); RDW-CV 14.4 % (10.5-14.5); WBC 19.3 thou/uL (4.0-11.0)
[2021-04-10 00:33] LABS: HEMOGLOBIN 16.4 gm/dL (12.0-15.0)
[2021-04-10 00:43] LABS: ALBUMIN 4.4 g/dL (3.4-5.0); CALCIUM 9.6 mg/dL (8.5-10.1); CREATININE 0.8 mg/dL (0.6-1.3); MAGNESIUM 2.4 mg/dL (1.8-2.4); TOTAL BILIRUBIN 1.4 mg/dL (<0.1-1.0); TOTAL PROTEIN 7.8 g/dL (6.4-8.2)
[2021-04-11] VITALS (78 sets, daily range): BP systolic 87–211; BP diastolic 46–181
[2021-04-11 06:51] LABS: HEMATOCRIT 40.5 % (37.0-47.0); MCH 29.5 pg (26.0-34.0); MPV 9.7 fl. (7.2-11.1); NUCLEATED RBCS 0 /100WBC; PLATELET COUNT* 84 thou/uL (150-400); RBC 4.66 mil/uL (4.20-5.00); RDW-CV 14.5 % (10.5-14.5); WBC 9.7 thou/uL (4.0-11.0)
[2021-04-11 07:06] LABS: HEMOGLOBIN 13.8 gm/dL (12.0-15.0)
[2021-04-11 07:13] LABS: CALCIUM 9.2 mg/dL (8.5-10.1); CREATININE 0.7 mg/dL (0.6-1.3); MAGNESIUM 2.3 mg/dL (1.8-2.4)
[2021-04-11 07:40] LABS: ABSOLUTE LYMPHOCYTES 1.2 thou/uL (0.8-5.3); ABSOLUTE MONOCYTES 0.2 thou/uL (0.0-1.2); ABSOLUTE NEUTROPHILS 8.3 thou/uL (1.6-8.1); PLATELET ESTIMATE ADEQUATE
[2021-04-12] VITALS (64 sets, daily range): BP systolic 87–161; BP diastolic 50–90
[2021-04-12 05:37] LABS: ABSOLUTE LYMPHOCYTES 0.6 thou/uL (0.8-5.3); ABSOLUTE MONOCYTES 0.3 thou/uL (0.0-1.2); ABSOLUTE NEUTROPHILS 7.4 thou/uL (1.6-8.1); BASOPHILS 0.3 %; HEMATOCRIT 37.8 % (37.0-47.0); HEMOGLOBIN 13.1 gm/dL (12.0-15.0); LYMPHOCYTES 7.2 %; MCH 30.1 pg (26.0-34.0); MCHC 34.7 g/dL (28.0-37.0); MCV 86.5 fL (80.0-100.0); MONOCYTES 3.3 %; MPV 8.9 fl. (7.2-11.1); NUCLEATED RBCS 0 /100WBC; PLATELET COUNT* 89 thou/uL (150-400); POLYS 89.2 %; RBC 4.37 mil/uL (4.20-5.00); RDW-CV 14.2 % (10.5-14.5); WBC 8.3 thou/uL (4.0-11.0)
[2021-04-12 05:47] LABS: CREATININE 0.7 mg/dL (0.6-1.3); MAGNESIUM 2.2 mg/dL (1.8-2.4); POTASSIUM 4.4 mmol/L (3.5-5.1); TOTAL BILIRUBIN 0.8 mg/dL (<0.1-1.0)
[2021-04-13] VITALS (29 sets, daily range): BP systolic 79–104; BP diastolic 49–70
--- NOTE | 2021-04-13 09:21 | 2DMMODE ---
[place] [address] 2 D/M-MODE ECHOCARDIOGRAM Name: HUDSON ESQUIVEL Room: [address] ADM [place] .R.#: [id number] Admission: 03/11/21 Attend Phys: Niraj Aguirre Discharge: Date of : 71 Date of Service: 04/13/21920 Report #: [id number] THIS REPORT FOR: cc: Violette Cabrales Ghaison F. DO Liston, Michael J. MD [facility] ~ APPROVED REPORT Study performed: 04/13/2021 07:33:24 EXAM: Limited 2D Echocardiogram Patient Location: In-Patient Room #: [facility] Status: routine BSA: 1.82 HR: 67 bpm BP: 103/79 mmHg Rhythm: NSR Other Information Study Quality: Fair Technically limited study due to post operative dressings, inability to position patient. Indications BACTEREMIA Left Ventricle The left ventricle is normal size. There is normal LV segmental wall motion. There is normal left ventricular wall thickness. The left ventricular systolic function is normal. LVEF is 55-60%. Right Ventricle The right ventricle is normal size. The right ventricular systolic function is normal. Atria The left atrium size is normal. The right atrium size is normal. Aortic Valve The aortic valve is normal in structure. Mitral Valve The mitral valve is [place] [address] 2 D/M-MODE ECHOCARDIOGRAM Name: HUDSON ESQUIVEL Room: [address] IN M.R.#: [id number] Admission: 03/11/21 Attend Phys: Niraj Aguirre Discharge: Date of : 71 Date of Service: 04/13/21920 Report #: [id number] Tricuspid Valve The tricuspid valve is normal in structure. Pulmonic Valve Pulmonic valve is not well visualized. Great Vessels The aortic root is normal in size. IVC is normal in size and collapses >50% with inspiration. Pericardium There is no pericardial effusion. <Conclusion> The left ventricle is normal size. There is normal left ventricular wall thickness. The left ventricular systolic function is normal. LVEF is 55-60%. The study is technically limited with only 1 echo window available for evaluation/analysis. No obvious chamber enlargement. Aortic, mitral and tricuspid valves are grossly normal in structure and motion. Pulmonic valve not well visualized. <ELECTRONICALLY SIGNED> By: Sergo Flanagan MD, [facility] 04/13/21920 0 0 Sergo Flanagan MD, FACC /INF
[2021-04-14] VITALS (23 sets, daily range): BP systolic 73–141; BP diastolic 46–82
[2021-04-14 05:40] LABS: ABSOLUTE EOSINOPHILS 0.2 thou/uL (0.0-0.7); ABSOLUTE MONOCYTES 0.2 thou/uL (0.0-1.2); ABSOLUTE NEUTROPHILS 6.8 thou/uL (1.6-8.1); BASOPHILS 0.4 %; EOSINOPHILS 2.6 %; HEMATOCRIT 36.6 % (37.0-47.0); HEMOGLOBIN 12.8 gm/dL (12.0-15.0); LYMPHOCYTES 12.1 %; MCH 30.4 pg (26.0-34.0); MCHC 34.9 g/dL (28.0-37.0); MPV 8.4 fl. (7.2-11.1); NUCLEATED RBCS 0 /100WBC; PLATELET COUNT* 112 thou/uL (150-400); POLYS 82.9 %; RDW-CV 14.5 % (10.5-14.5); WBC 8.2 thou/uL (4.0-11.0)
[2021-04-14 06:14] LABS: CALCIUM 9.1 mg/dL (8.5-10.1); CREATININE 0.7 mg/dL (0.6-1.3); MAGNESIUM 2.1 mg/dL (1.8-2.4); POTASSIUM 3.3 mmol/L (3.5-5.1)
[2021-04-15] VITALS (25 sets, daily range): BP systolic 90–135; BP diastolic 44–84
[2021-04-15 08:06] LABS: ABSOLUTE EOSINOPHILS 0.1 thou/uL (0.0-0.7); ABSOLUTE LYMPHOCYTES 0.8 thou/uL (0.8-5.3); ABSOLUTE MONOCYTES 0.2 thou/uL (0.0-1.2); ABSOLUTE NEUTROPHILS 6.7 thou/uL (1.6-8.1); BASOPHILS 0.5 %; EOSINOPHILS 1.6 %; HEMATOCRIT 35.4 % (37.0-47.0); LYMPHOCYTES 9.8 %; MCH 29.8 pg (26.0-34.0); MCHC 33.9 g/dL (28.0-37.0); MCV 87.8 fL (80.0-100.0); MONOCYTES 2.6 %; MPV 7.8 fl. (7.2-11.1); NUCLEATED RBCS 0 /100WBC; PLATELET COUNT* 109 thou/uL (150-400); POLYS 85.5 %; RBC 4.03 mil/uL (4.20-5.00); RDW-CV 14.7 % (10.5-14.5); WBC 7.8 thou/uL (4.0-11.0)
[2021-04-15 08:19] LABS: ALBUMIN 2.3 g/dL (3.4-5.0); CALCIUM 8.5 mg/dL (8.5-10.1); CREATININE 0.6 mg/dL (0.6-1.3); MAGNESIUM 1.9 mg/dL (1.8-2.4); POTASSIUM 4.2 mmol/L (3.5-5.1); TOTAL BILIRUBIN 0.6 mg/dL (<0.1-1.0); TOTAL PROTEIN 5.3 g/dL (6.4-8.2)
[2021-04-16] VITALS (25 sets, daily range): BP systolic 88–156; BP diastolic 28–91
[2021-04-16 08:35] LABS: HEMATOCRIT 39.6 % (37.0-47.0); HEMOGLOBIN 13.4 gm/dL (12.0-15.0); MCH 29.5 pg (26.0-34.0); MCHC 33.9 g/dL (28.0-37.0); MCV 86.8 fL (80.0-100.0); NUCLEATED RBCS 0 /100WBC; PLATELET COUNT* 163 thou/uL (150-400); RBC 4.56 mil/uL (4.20-5.00); RDW-CV 14.6 % (10.5-14.5); WBC 10.8 thou/uL (4.0-11.0)
[2021-04-16 09:45] LABS: ALBUMIN 2.7 g/dL (3.4-5.0); CALCIUM 8.6 mg/dL (8.5-10.1); CREATININE 0.7 mg/dL (0.6-1.3); MAGNESIUM 1.9 mg/dL (1.8-2.4); POTASSIUM 3.5 mmol/L (3.5-5.1); TOTAL BILIRUBIN 0.7 mg/dL (<0.1-1.0); TOTAL PROTEIN 5.8 g/dL (6.4-8.2)
[2021-04-16 10:17] LABS: ABSOLUTE EOSINOPHILS 0.1 thou/uL (0.0-0.7); ABSOLUTE LYMPHOCYTES 1.1 thou/uL (0.8-5.3); ABSOLUTE MONOCYTES 0.6 thou/uL (0.0-1.2); PLATELET ESTIMATE ADEQUATE
[2021-04-16 11:05] LABS: PREALBUMIN 27.6 mg/dL (18.0-35.7)
[2021-04-17] VITALS (36 sets, daily range): BP systolic 76–190; BP diastolic 37–163
[2021-04-17 06:06] LABS: ABSOLUTE BASOPHILS 0.1 thou/uL (0.0-0.2); ABSOLUTE LYMPHOCYTES 0.8 thou/uL (0.8-5.3); ABSOLUTE MONOCYTES 0.6 thou/uL (0.0-1.2); ABSOLUTE NEUTROPHILS 8.6 thou/uL (1.6-8.1); BASOPHILS 0.8 %; EOSINOPHILS 0.3 %; HEMATOCRIT 36.7 % (37.0-47.0); HEMOGLOBIN 12.6 gm/dL (12.0-15.0); LYMPHOCYTES 8.2 %; MCHC 34.3 g/dL (28.0-37.0); MCV 87.3 fL (80.0-100.0); MONOCYTES 5.4 %; MPV 7.9 fl. (7.2-11.1); NUCLEATED RBCS 0 /100WBC; PLATELET COUNT* 159 thou/uL (150-400); POLYS 85.3 %; RBC 4.21 mil/uL (4.20-5.00); RDW-CV 14.5 % (10.5-14.5); WBC 10.1 thou/uL (4.0-11.0)
[2021-04-17 14:19] LABS: ALBUMIN 2.9 g/dL (3.4-5.0); CALCIUM 8.7 mg/dL (8.5-10.1); CREATININE 0.7 mg/dL (0.6-1.3); MAGNESIUM 2.2 mg/dL (1.8-2.4); POTASSIUM 4.3 mmol/L (3.5-5.1); TOTAL BILIRUBIN 0.5 mg/dL (<0.1-1.0)
[2021-04-18] VITALS (21 sets, daily range): BP systolic 76–134; BP diastolic 45–86
[2021-04-18 06:25] LABS: ABSOLUTE BASOPHILS 0.1 thou/uL (0.0-0.2); ABSOLUTE EOSINOPHILS 0.1 thou/uL (0.0-0.7); ABSOLUTE LYMPHOCYTES 1.5 thou/uL (0.8-5.3); ABSOLUTE MONOCYTES 0.4 thou/uL (0.0-1.2); ABSOLUTE NEUTROPHILS 7.5 thou/uL (1.6-8.1); EOSINOPHILS 1.2 %; HEMATOCRIT 36.3 % (37.0-47.0); HEMOGLOBIN 12.5 gm/dL (12.0-15.0); LYMPHOCYTES 15.3 %; MCH 30.1 pg (26.0-34.0); MCHC 34.4 g/dL (28.0-37.0); MCV 87.6 fL (80.0-100.0); MPV 7.7 fl. (7.2-11.1); NUCLEATED RBCS 0 /100WBC; PLATELET COUNT* 148 thou/uL (150-400); POLYS 78.5 %; RBC 4.15 mil/uL (4.20-5.00); RDW-CV 14.3 % (10.5-14.5); WBC 9.6 thou/uL (4.0-11.0)
[2021-04-18 06:44] LABS: ALBUMIN 2.8 g/dL (3.4-5.0); CALCIUM 8.8 mg/dL (8.5-10.1); CREATININE 0.7 mg/dL (0.6-1.3); POTASSIUM 3.2 mmol/L (3.5-5.1); TOTAL BILIRUBIN 0.6 mg/dL (<0.1-1.0); TOTAL PROTEIN 5.7 g/dL (6.4-8.2)
[2021-04-19] VITALS (21 sets, daily range): BP systolic 102–128; BP diastolic 69–85
[2021-04-19 15:17] LABS: ABSOLUTE BASOPHILS 0.1 thou/uL (0.0-0.2); ABSOLUTE LYMPHOCYTES 0.9 thou/uL (0.8-5.3); BASOPHILS 0.3 %; EOSINOPHILS 0.1 %; HEMOGLOBIN 14.4 gm/dL (12.0-15.0); MCH 29.6 pg (26.0-34.0); MPV 7.8 fl. (7.2-11.1); NUCLEATED RBCS 0 /100WBC
[2021-04-19 15:26] LABS: CALCIUM 8.8 mg/dL (8.5-10.1); CREATININE 0.9 mg/dL (0.6-1.3); POTASSIUM 3.4 mmol/L (3.5-5.1)
[2021-04-19 15:43] LABS: ABSOLUTE MONOCYTES 0.4 thou/uL (0.0-1.2); ABSOLUTE NEUTROPHILS 16.1 thou/uL (1.6-8.1); HEMATOCRIT 42.5 % (37.0-47.0); LYMPHOCYTES 5.1 %; MCHC 33.9 g/dL (28.0-37.0); MCV 87.1 fL (80.0-100.0); MONOCYTES 2.1 %; POLYS 92.4 %; RBC 4.88 mil/uL (4.20-5.00); RDW-CV 14.8 % (10.5-14.5); WBC 17.5 thou/uL (4.0-11.0)
[2021-04-19 15:44] LABS: PLATELET COUNT* 252 thou/uL (150-400)
[2021-04-20 00:07] VITALS: BP 127/92
[2021-04-20 12:40] LABS: HEMATOCRIT 42.9 % (37.0-47.0); HEMOGLOBIN 14.4 gm/dL (12.0-15.0); MCH 29.5 pg (26.0-34.0); MCHC 33.5 g/dL (28.0-37.0); MCV 87.8 fL (80.0-100.0); MPV 7.8 fl. (7.2-11.1); NUCLEATED RBCS 0 /100WBC; PLATELET COUNT* 230 thou/uL (150-400); RBC 4.89 mil/uL (4.20-5.00); RDW-CV 14.8 % (10.5-14.5); WBC 21.5 thou/uL (4.0-11.0)
[2021-04-20 12:47] LABS: CALCIUM 9.2 mg/dL (8.5-10.1); CREATININE 0.9 mg/dL (0.6-1.3); POTASSIUM 3.1 mmol/L (3.5-5.1)
[2021-04-20 12:51] LABS: ALBUMIN 3.6 g/dL (3.4-5.0); MAGNESIUM 1.9 mg/dL (1.8-2.4); TOTAL BILIRUBIN 0.8 mg/dL (<0.1-1.0)
[2021-04-20 13:22] LABS: ABSOLUTE LYMPHOCYTES 1.3 thou/uL (0.8-5.3); ABSOLUTE MONOCYTES 1.5 thou/uL (0.0-1.2); ABSOLUTE NEUTROPHILS 18.7 thou/uL (1.6-8.1); ANISOCYTOSIS 1+; PLATELET ESTIMATE ADEQUATE; POIKILOCYTOSIS 1+
[2021-04-20 21:34] VITALS: BP 93/59
[2021-04-20 21:57] LABS: CALCIUM 8.6 mg/dL (8.5-10.1); CREATININE 0.7 mg/dL (0.6-1.3)
[2021-04-20 21:58] LABS: POTASSIUM 4.5 mmol/L (3.5-5.1)
[2021-04-21 00:24] VITALS: BP 81/58
[2021-04-21 04:02] LABS: ABSOLUTE BASOPHILS 0.1 thou/uL (0.0-0.2); ABSOLUTE LYMPHOCYTES 1.4 thou/uL (0.8-5.3); ABSOLUTE MONOCYTES 0.6 thou/uL (0.0-1.2); ABSOLUTE NEUTROPHILS 18.1 thou/uL (1.6-8.1); BASOPHILS 0.4 %; EOSINOPHILS 0.1 %; HEMATOCRIT 37.9 % (37.0-47.0); LYMPHOCYTES 6.7 %; MCH 29.9 pg (26.0-34.0); MCHC 34.2 g/dL (28.0-37.0); MCV 87.4 fL (80.0-100.0); MONOCYTES 3.1 %; MPV 7.9 fl. (7.2-11.1); NUCLEATED RBCS 0 /100WBC; PLATELET COUNT* 185 thou/uL (150-400); POLYS 89.7 %; RBC 4.33 mil/uL (4.20-5.00); RDW-CV 14.8 % (10.5-14.5); WBC 20.2 thou/uL (4.0-11.0)
[2021-04-21 04:24] LABS: ALBUMIN 3.1 g/dL (3.4-5.0); CALCIUM 8.8 mg/dL (8.5-10.1); CREATININE 0.7 mg/dL (0.6-1.3); MAGNESIUM 2.5 mg/dL (1.8-2.4); POTASSIUM 4.4 mmol/L (3.5-5.1); TOTAL BILIRUBIN 0.6 mg/dL (<0.1-1.0); TOTAL PROTEIN 6.2 g/dL (6.4-8.2)
[2021-04-21 07:19] VITALS: BP 95/67
[2021-04-21 07:20] VITALS: BP 85/61
== END 2021-04-21 12:25 | disposition short-term general hospital (02) | DRG 871 ==
LOC: M.ERS 14:18 → M.TBA-ER 17:17 → M.ICU 23:21 → M.2W 23:21 → M.TBA-ER 23:21 → M.ORTHSURG 23:21 → M.2W 04-03 22:41 → M.ICU 04-10 00:35
PROVIDERS: Family Medicine; Internal Medicine; Internal Medicine Critical Care Medicine; Internal Medicine Hematology & Oncology; Physician Assistant; ADMIT Internal Medicine; ATTEND Internal Medicine
PROC: XW033E5 Introduction of Remdesivir Anti-infective into Peripheral Vein, Percutaneous Approach, New Technology Group 5 (ICD-10-PCS; principal; 2021-03-11)
PROC: 5A0935A Assistance with Respiratory Ventilation, Less than 24 Consecutive Hours, High Flow/Velocity Cannula (ICD-10-PCS; 2021-03-12)
PROC: 5A0935A Assistance with Respiratory Ventilation, Less than 24 Consecutive Hours, High Flow/Velocity Cannula (ICD-10-PCS; 2021-03-13)
PROC: 5A0935A Assistance with Respiratory Ventilation, Less than 24 Consecutive Hours, High Flow/Velocity Cannula (ICD-10-PCS; 2021-03-15)
PROC: 5A09357 Assistance with Respiratory Ventilation, Less than 24 Consecutive Hours, Continuous Positive Airway Pressure (ICD-10-PCS; 2021-03-16)
PROC: 5A0935A Assistance with Respiratory Ventilation, Less than 24 Consecutive Hours, High Flow/Velocity Cannula (ICD-10-PCS; 2021-03-16)
PROC: 5A0935A Assistance with Respiratory Ventilation, Less than 24 Consecutive Hours, High Flow/Velocity Cannula (ICD-10-PCS; 2021-03-17)
PROC: 5A0935A Assistance with Respiratory Ventilation, Less than 24 Consecutive Hours, High Flow/Velocity Cannula (ICD-10-PCS; 2021-03-18)
PROC: 5A0935A Assistance with Respiratory Ventilation, Less than 24 Consecutive Hours, High Flow/Velocity Cannula (ICD-10-PCS; 2021-03-19)
PROC: 5A0935A Assistance with Respiratory Ventilation, Less than 24 Consecutive Hours, High Flow/Velocity Cannula (ICD-10-PCS; 2021-03-20)
PROC: 5A0935A Assistance with Respiratory Ventilation, Less than 24 Consecutive Hours, High Flow/Velocity Cannula (ICD-10-PCS; 2021-03-21)
PROC: 5A09357 Assistance with Respiratory Ventilation, Less than 24 Consecutive Hours, Continuous Positive Airway Pressure (ICD-10-PCS; 2021-03-22)
PROC: 5A0935A Assistance with Respiratory Ventilation, Less than 24 Consecutive Hours, High Flow/Velocity Cannula (ICD-10-PCS; 2021-03-22)
PROC: 02HV33Z Insertion of Infusion Device into Superior Vena Cava, Percutaneous Approach (ICD-10-PCS; 2021-03-23)
PROC: B5181ZA Fluoroscopy of Superior Vena Cava using Low Osmolar Contrast, Guidance (ICD-10-PCS; 2021-03-23)
PROC: 5A0935A Assistance with Respiratory Ventilation, Less than 24 Consecutive Hours, High Flow/Velocity Cannula (ICD-10-PCS; 2021-03-23)
PROC: B548ZZA Ultrasonography of Superior Vena Cava, Guidance (ICD-10-PCS; 2021-03-23)
PROC: 5A0935A Assistance with Respiratory Ventilation, Less than 24 Consecutive Hours, High Flow/Velocity Cannula (ICD-10-PCS; 2021-03-25)
PROC: 5A0935A Assistance with Respiratory Ventilation, Less than 24 Consecutive Hours, High Flow/Velocity Cannula (ICD-10-PCS; 2021-03-26)
PROC: 5A0945A Assistance with Respiratory Ventilation, 24-96 Consecutive Hours, High Flow/Velocity Cannula (ICD-10-PCS; 2021-03-28)
PROC: 5A09357 Assistance with Respiratory Ventilation, Less than 24 Consecutive Hours, Continuous Positive Airway Pressure (ICD-10-PCS; 2021-03-28)
PROC: 5A0945A Assistance with Respiratory Ventilation, 24-96 Consecutive Hours, High Flow/Velocity Cannula (ICD-10-PCS; 2021-03-31)
PROC: 5A09357 Assistance with Respiratory Ventilation, Less than 24 Consecutive Hours, Continuous Positive Airway Pressure (ICD-10-PCS; 2021-03-31)
PROC: 5A0935A Assistance with Respiratory Ventilation, Less than 24 Consecutive Hours, High Flow/Velocity Cannula (ICD-10-PCS; 2021-04-05)
PROC: 5A0935A Assistance with Respiratory Ventilation, Less than 24 Consecutive Hours, High Flow/Velocity Cannula (ICD-10-PCS; 2021-04-06)
PROC: 5A0935A Assistance with Respiratory Ventilation, Less than 24 Consecutive Hours, High Flow/Velocity Cannula (ICD-10-PCS; 2021-04-07)
PROC: 5A0935A Assistance with Respiratory Ventilation, Less than 24 Consecutive Hours, High Flow/Velocity Cannula (ICD-10-PCS; 2021-04-08)
PROC: 5A0935A Assistance with Respiratory Ventilation, Less than 24 Consecutive Hours, High Flow/Velocity Cannula (ICD-10-PCS; 2021-04-09)
PROC: 0W9B30Z Drainage of Left Pleural Cavity with Drainage Device, Percutaneous Approach (ICD-10-PCS; 2021-04-10)
PROC: 5A0955A Assistance with Respiratory Ventilation, Greater than 96 Consecutive Hours, High Flow/Velocity Cannula (ICD-10-PCS; 2021-04-10)
PROC: B548ZZA Ultrasonography of Superior Vena Cava, Guidance (ICD-10-PCS; 2021-04-16)
PROC: 02HV33Z Insertion of Infusion Device into Superior Vena Cava, Percutaneous Approach (ICD-10-PCS; 2021-04-16)
PROC: B5181ZA Fluoroscopy of Superior Vena Cava using Low Osmolar Contrast, Guidance (ICD-10-PCS; 2021-04-16)
PROC: 5A09357 Assistance with Respiratory Ventilation, Less than 24 Consecutive Hours, Continuous Positive Airway Pressure (ICD-10-PCS; 2021-04-17)
PROC: 5A0945A Assistance with Respiratory Ventilation, 24-96 Consecutive Hours, High Flow/Velocity Cannula (ICD-10-PCS; 2021-04-17)
PROC: 5A09357 Assistance with Respiratory Ventilation, Less than 24 Consecutive Hours, Continuous Positive Airway Pressure (ICD-10-PCS; 2021-04-19)
PROC: 5A09357 Assistance with Respiratory Ventilation, Less than 24 Consecutive Hours, Continuous Positive Airway Pressure (ICD-10-PCS; 2021-04-20)
PROC: 5A09357 Assistance with Respiratory Ventilation, Less than 24 Consecutive Hours, Continuous Positive Airway Pressure (ICD-10-PCS; 2021-04-21)
DX: A41.1 Sepsis due to other specified staphylococcus (principal); U07.1 COVID-19; J12.82 Pneumonia due to coronavirus disease 2019; J80 Acute respiratory distress syndrome; I26.99 Other pulmonary embolism without acute cor pulmonale; N39.0 Urinary tract infection, site not specified; J93.9 Pneumothorax, unspecified; F41.9 Anxiety disorder, unspecified; E78.5 Hyperlipidemia, unspecified; E66.9 Obesity, unspecified; B96.20 Unspecified Escherichia coli [E. coli] as the cause of diseases classified elsewhere; D18.09 Hemangioma of other sites; D69.6 Thrombocytopenia, unspecified; Z90.710 Acquired absence of both cervix and uterus; Z88.6 Allergy status to analgesic agent; Z88.8 Allergy status to other drugs, medicaments and biological substances; Z68.28 Body mass index [BMI] 28.0-28.9, adult